=== PATIENT | male | born 1970 | race Caucasian/White ===

== ENCOUNTER 2018-09-26 09:25 | Observation (INO) | payer MEDICARE, OTHER ==
[2018-09-26 09:47] LABS: #Basophils 0.1 thou/uL (0.0-0.2); #Eosinphils 0.1 thou/uL (0.0-0.7); #Lymphocytes 1.5 thou/uL (1.20-3.40); #Monocytes 0.4 thou/uL (0.11-0.59); #Neutrophils 2.8 thou/uL (1.40-6.50); %Basophils 1.1 % (0.0-1.0); %Eosinophils 1.8 % (0.0-10.0); %Monocytes 8.1 % (0.0-10.0); %Neutrophils 58.1 % (42.0-75.0); Hemoglobin 17.5 g/dL (14.0-18.0); Mean Corpuscular HGB CONC 35.7 g/dL (32.0-36.0); Mean Corpuscular Hemoglobin 30.5 pg (27.0-31.0); Mean Corpuscular Volume 85.3 fL (78.0-98.0); Mean Platelet Volume 9.4 fL (7.4-10.4); Platelet Count 231 thou/uL (130-400); RBC Distribution Width 11.8 % (11.5-14.5); Red Blood Cell (RBC) Count 5.73 mill/uL (4.70-6.10); White Blood Cell (WBC) Count 4.8 thou/uL (4.8-10.8)
[2018-09-26] MEDS ORDERED: Nitroglycerin 0.4 MG TAB (25 Tab Bottle) ONE (10:14)
--- NOTE | 2018-09-26 10:23 | CT ---
CT ARTERIOGRAM CHEST WITH IV CONTRAST AND 3D MIP IMAGING: Date: 09/26/18 HISTORY: Chest pain. COMPARISON: 04/27/13. FINDINGS: There is good contrast opacification of pulmonary arteries and thoracic aorta with common origin of t he left common carotid artery from the base of the brachiocephalic artery. Nonspecific lymph nodes sc attered about the mediastinum. No pleural fluid or pneumothorax. IMPRESSION: No CT evidence of pulmonary embolus. POS: FLOYD
[2018-09-26 10:33] LABS: ALT (SGPT) 59 U/L (8-55); AST (SGOT) 36 U/L (5-34); Albumin 4.8 g/dL (3.5-5.0); Alkaline Phosphatase 75 U/L (40-150); Anion Gap 16 mmol/L (10-20); BUN (Urea Nitrogen) 19 mg/dL (8.9-20.6); Bilirubin, Total 0.6 mg/dL (0.2-1.2); CK (CPK) 162 U/L (30-200); Calc. Creatinine Clearance 0 mL/min (70-130); Calcium 10.1 mg/dL (7.8-10.44); Carbon Dioxide 23 mmol/L (22-29); Chloride 105 mmol/L (98-107); Estimated GFR-MDRD 58; Globulin 3.7 g/dL (2.4-3.5); Glucose 105 mg/dL (70-105); Potassium 4.3 mmol/L (3.5-5.1); Protein, Total 8.5 g/dL (6.0-8.3); Sodium 140 mmol/L (136-145)
[2018-09-26] MEDS ORDERED: clonazePAM 1 MG TAB ONE (12:34)
[2018-09-26 13:40] LABS: Troponin I Less than 0.010 ng/mL (< 0.028)
[2018-09-26 14:32] VITALS: BMI 37.3
[2018-09-26 16:08] LABS: Troponin I Less than 0.010 ng/mL (< 0.028)
[2018-09-26] MEDS ORDERED: traMADol HCl 50 MG TAB PO PRN (17:01)
[2018-09-26] MEDS ORDERED: Acetaminophen 325 MG TAB PO PRN (17:04)
[2018-09-26] MEDS ORDERED: Iopamidol 370 76% 100 ML VIAL ONE (17:12)
[2018-09-26] MEDS: Nitroglycerin 0.4 MG TAB (25 Tab Bottle) SL PRN ×2 (17:38→17:44)
[2018-09-26] MEDS: Lorazepam 2 MG/ML VIAL SLOW IVP PRN (18:20)
--- NOTE | 2018-09-26 20:19 | HP ---
PRIMARY CARE PHYSICIAN: Dr. Deng at [facility]. OIL CHANGER: Dr. Umana at [facility]. CHIEF COMPLAINT: Chest pain. HISTORY OF PRESENT ILLNESS: Augustin is a very pleasant 48-year-old male, who presented to the emergency room today after 3 days of left-sided chest pain that radiated to his left arm. Reports he is nauseous, diaphoretic, short of breath with these episodes. Reports they are intermittent. Reports he has had similar episodes in the past. Has had 4 to 5 cardiac caths in the past. He had two in 2017, one of which they placed a stent. This was all done at [facility]. In 2016, he had two heart catheterizations done here, which showed some coronary artery disease, but it was not stented at that time. The patient also reports that yesterday he had some left calf pain. Reports that it was very difficult to walk on and stiff. Reports that he felt like the pain was moving upwards. In the emergency room, did a CTA of his chest. No evidence of pulmonary embolism. The patient does have a past medical history of a pacemaker for Mobitz type 2 heart block in addition to the heart catheterizations. He does have a pacemaker. Denies any recent travels. Had surgery on his left shoulder over a year ago for a bone spur. The patient does report using tobacco. Does have a history of anxiety. EKG shows sinus tach initially with a pulse of 104, no ectopic conduction, normal ST segments, axis is normal. Repeat EKG in the ER showed normal sinus rhythm, beats per minute 90, conduction ST-T waves normal, axis is also normal. Initial troponin was undetectable. Based on history and current symptoms, the patient will be admitted to the observation unit for further evaluation. PAST MEDICAL HISTORY: As above. The patient also reports that he has sleep apnea in which he uses CPAP at night. Also positive pacemaker, anxiety, coronary artery disease, panic anxiety disorder. PAST SURGICAL HISTORY: Includes laparoscopic surgery on left shoulder, cardiac stent x1, surgical removal of gallbladder. PSYCH HISTORY: Panic, anxiety. SOCIAL HISTORY: Lives at home with his . Chews tobacco daily. He has done this for the last 30 years. FAMILY HISTORY: With a strong cardiac history. Father had 4 MIs, which was the cause of his . Mother also has coronary artery disease and MIs in the past. She is currently living and is 80 years old. CURRENT MEDICATIONS: The patient is on: 1. Clonazepam 1 mg q.i.d. 2. Aspirin 81 mg p.o. daily. 3. Irbesartan 10 mg p.o. daily. 4. Fish oil 1000 mg once daily. 5. Nitroglycerin 0.4 mg sublingual as needed for chest pain. 6. Metoprolol 6.25 p.o. daily. 7. Fenofibrate 145 mg p.o. daily. 8. Zetia 10 mg p.o. daily. 9. Plavix 75 mg daily. 10. Crestor 10 mg daily. ALLERGIES: CODEINE, HYDROCODONE, MORPHINE, VANCOMYCIN, VICODIN. REVIEW OF SYSTEMS: CONSTITUTIONAL: The patient denies chills or fever. ENT: Denies rhinorrhea or sore throat. CARDIOVASCULAR: Does report chest pain with radiation to the left arm, intermittent x3 days. Denies palpitations. RESPIRATORY: Does report shortness of breath, which accompanied by chest pain. Also reports dyspnea on exertion, which gets worse after physical exertion. GI: Denies abdominal pain, nausea, vomiting, or diarrhea. MUSCULOSKELETAL: Reports he had some left calf pain yesterday, which has resolved. Denies injury. Denies fall. SKIN: Denies rash or skin changes. NEUROLOGIC: Denies any focal motor or sensory deficits. Denies headache. PHYSICAL EXAMINATION: VITAL SIGNS: Blood pressure is 104/69, pulse is 77, respirations are 20, temperature 98.0, pulse ox is 96 percent on room air. CONSTITUTIONAL: The patient appears anxious, otherwise nontoxic. He is alert and oriented to person, place, and time. HEENT: Head is atraumatic and normocephalic. Eyes, pupils are equal, round, and reactive to light. Extraocular muscles are intact. NECK: Trachea is midline. Normal range of motion. RESPIRATORY: Chest; no signs of respiratory distress. Breath sounds are clear. CARDIOVASCULAR: Heart sounds are normal. Regular rate and rhythm. ABDOMEN: Male. Nontender on palpation. Bowel sounds are heard. BACK: Normal on inspection, no tenderness. EXTREMITIES: Upper extremity, normal range of motion. Inspection is normal. Pulses equal bilaterally in lower extremity. Normal inspection. Normal range of motion. No edema is noted. Pedal pulses are bilaterally equal. NEUROLOGIC: The patient is oriented to person, place, and time. Speech is normal. SKIN: Normal, dry. Normal in color. No rash. PERTINENT LABORATORY DATA: CK is 162. Sodium 140, potassium 4.3, chloride 104, carbon dioxide 23, gap is 16, BUN is 19, creatinine is 1.33, estimated GFR is 58, calcium 10.1, glucose 105, globulin is 3.7, AST 36, ALT 59. Troponin x1 is undetectable. CBC, white blood cell count is 4.8, hemoglobin 17.5, hematocrit 48.9, platelet count is 231. ASSESSMENT AND PLAN: 1. Chest pain. We will trend troponins. We will ask [facility] for records since we saw him here in 2016. We will consult Cardiology to interrogate his pacemaker. Order an echocardiogram. 2. Hypertension. We will continue his home medications. Trend vital signs. 3. Hyperlipidemia. Check lipids. Continue his home medication. 4. Anxiety disorder. We will continue his home medication. 5. Hospital course is dependent on clinical findings. Job ID: [id number]
[2018-09-26] MEDS ORDERED: Fenofibrate Nanocrystallized 145 MG TAB PO SCH (21:00)
[2018-09-26] MEDS ORDERED: Clopidogrel Bisulfate 75 MG TAB PO SCH (21:00)
[2018-09-26] MEDS ORDERED: Aspirin 81 mg Enteric Coated Tablet PO SCH (21:00)
[2018-09-26] MEDS ORDERED: Ezetimibe 10 MG TAB PO SCH (21:00)
[2018-09-26] MEDS ORDERED: Rosuvastatin 10 MG TAB PO SCH (21:00)
[2018-09-26] MEDS ORDERED: OMEGA 3 ACID ETHYL ESTERS PO SCH (21:00)
[2018-09-26] MEDS: clonazePAM 1 MG TAB PO SCH (21:07)
[2018-09-26] MEDS: Famotidine 20 MG TAB PO SCH (21:08)
--- NOTE | 2018-09-27 02:47 | CON ---
DATE OF CONSULTATION: PRIMARY MIXING AND DISPENSING SUPERVISOR: Dr. Umana. The patient's primary learning development specialist here at [facility] is going to be Dr. Booker. REFERRING PROVIDER: Zo REASON FOR CARDIOLOGY CONSULT: Chest pain. HISTORY OF PRESENT ILLNESS: Mr. Ruffin is a 48-year-old male with significant history of PTSD since 2009, coronary artery disease and stent placement in 2016, pacemaker placement in 2013, sleep apnea, and family history of fatty liver. The patient underwent stent placement in [address] Umana. He was told that he still has some stenosis to his coronary arteries, but at that time, they were not significant enough to have another procedure by Dr. Umana at [facility]. The patient followed up with Dr. Umana about 2 months ago. The patient was doing fine and the patient's EKG was showing normal per patient. The patient usually have anxiety attack with severe chest pain from the patient's medical history of PTSD. Three days ago, the patient started having pain to the left calf, which radiated to his left chest to his left upper arm for 2 days and the pain was getting worse with chest pressure and stabbing like pain. Yesterday, the patient's blood pressure was 130/85, heart rate 173 and a few minutes later, the patient's heart rate going up to 135. The patient started feeling dizziness, weakness, so the patient decided to present to the emergency department for further evaluation and treatment. The patient also has had nausea for at least 3 days. At this moment, once the patient arrived to the emergency department, the pain in the patient's left calf has disappeared. At this moment, the patient denies any chest pain, heaviness, tightness, discomfort, palpitation or fluttering in his chest, dizziness, lightheadedness, or any other cardiac complaints. The patient underwent stent placement in [address] Umana. We are processing to obtain the information from [facility] cipriano Sanchez at [place] at this moment. The patient underwent pacemaker placement in [address] Pompa secondary to complete heart block. The patient's pacemaker was interrogated today, which shows normal function with 31 episodes of longest one about 4 minutes and the latest one was noted to be in 08/2018. PAST MEDICAL HISTORY: 1. Hyperlipidemia. 2. Hypertriglyceridemia. 3. PTSD. 4. Sleep apnea using CPAP at night. 5. Hypertension. 6. Complete heart block. PAST SURGICAL HISTORY: 1. Pacemaker placement in 2014, cardiac stent placement in [address] Umana at [facility]. 2. Left shoulder surgery. 3. Cholecystectomy in 2009. FAMILY HISTORY: The patient's father had medical history of myocardial infarction x4 and he at the age of 56 due to the complication from myocardial infarction. The patient's mother has history of hyperlipidemia and hypertension. The patient's sister has diabetes and CABG x3 at the age of 50s. The patient's other sister has disorder of no cholesterol in her body. The patient's brother has history of stent placement and there are significant family history of fatty liver in his family. SOCIAL HISTORY: He is . He has 3 children. They live well; however, one of the son has panic anxiety issue. He denies smoking, EtOH, or illicit drug abuse, but he did half can a day. He drinks one glass of tea at day. He tried to exercise every day. ALLERGIES: HE IS ALLERGIC TO HYDROCODONE, VANCOMYCIN, AND MORPHINE. HOME MEDICATIONS: 1. Clonazepam 1 mg every 6 hours. 2. Aspirin 81 mg once a day. 3. Crestor 10 once a day. 4. Fenofibrate 145 mg once a day. 5. Zetia 10 mg once a day. 6. Plavix 75 mg once a day. 7. Metoprolol 12.5 mg once a day. 8. Metoprolol succinate 12.5 once a day. 9. Ashby-3 1000 mg every day. REVIEW OF SYSTEMS: The patient's twelve-point review of systems was negative unless otherwise mentioned in HPI. PHYSICAL EXAMINATION: VITAL SIGNS: Blood pressure 111/57, pulse is 76 and sinus rhythm, temperature 97.9, respiratory rate 16, and O2 saturation 94% with room air. GENERAL: The patient is alert and oriented x4, not in acute distress. HEENT: Head, normocephalic and atraumatic. Eyes, extraocular muscle movement intact. ENT and mouth, oral and nasal mucosa moist without lesion. NECK: Supple. Normal range of motion. No JVD. RESPIRATORY: Clear to auscultate bilaterally. No wheezing, rales, or rhonchi noted. CARDIOVASCULAR: Regular rate and rhythm. Normal S1, S2. No S3, S4. No significant murmur, heaves, or thrills noted. 2+ pulses in the bilateral upper and lower extremities. No edema. Carotid pulses are present with a brisk thrill. No edema in the lower extremities. ABDOMEN: Bowel sounds are present. Nontender. No mass to palpitate. SKIN: Warm, dry. No lesion, bruise, or rash noted. MUSCULOSKELETAL: The patient is able to move all extremities. At this moment, the patient denied any claudication. NEUROLOGIC: The patient is alert and oriented x4, not in acute distress. Nonfocal. PSYCHIATRIC: The patient is easy to get agitate, but very pleasant gentleman. LABORATORY DATA: WBC 4.8, hemoglobin 17.5, hematocrit 48.9, and platelet 231. Sodium 140, potassium 4.3, BUN 19, and creatinine 1.33. AST is 36 and ALT 59. Creatine kinase 162, and troponin is negative x3. A CT scan of the chest shows no evidence of pulmonary embolism. ASSESSMENT AND PLAN: 1. Chest pain. The patient's chest pain was coming from the patient's left calf for 2 days prior to this admission. At this moment, the patient denied any chest discomfort or any cardiac complaints. The patient underwent a cardiac catheterization in 2017 with stent placement. At this moment, the patient's 12-lead EKG and cardiac enzymes are negative; however, we would like to keep the patient n.p.o. after midnight and we would like to defer to Dr. Booker to decide whether the patient needs further cardiac workup. 2. Hypertension. The patient's blood pressure is stable with current medication. 3. Sleep apnea. He usually uses CPAP in night at home. Pacemaker interrogation shows normal function with 31 episodes of sinus tach. 4. Posttraumatic stress disorder. He is on clonazepam. 5. Coronary artery disease and stent placement. Telemetry records showed there are no ST-segment changes or T-wave inversion. The patient is on aspirin 81 mg once a day, Plavix 75 mg once a day, metoprolol succinate 12.5 mg once a day, and Crestor 10 mg once a day. 6. Hyperlipidemia. The patient is on statin. Thank you very much for allowing the Cardiology Service to participate in the care of this patient. We will follow along the patient's care team and make further evaluation as appropriate. Job ID: [id number]
[2018-09-27] MEDS: Lorazepam 2 MG/ML VIAL SLOW IVP PRN (04:54)
[2018-09-27 06:22] LABS: #Eosinphils 0.1 thou/uL (0.0-0.7); #Lymphocytes 1.4 thou/uL (1.20-3.40); #Monocytes 0.3 thou/uL (0.11-0.59); #Neutrophils 2.3 thou/uL (1.40-6.50); %Basophils 0.6 % (0.0-1.0); %Eosinophils 1.8 % (0.0-10.0); %Lymphocytes 33.8 % (21.0-51.0); %Monocytes 8.3 % (0.0-10.0); %Neutrophils 55.5 % (42.0-75.0); Hemoglobin 15.5 g/dL (14.0-18.0); Mean Corpuscular HGB CONC 35.5 g/dL (32.0-36.0); Mean Corpuscular Hemoglobin 30.3 pg (27.0-31.0); Mean Corpuscular Volume 85.4 fL (78.0-98.0); Mean Platelet Volume 9.3 fL (7.4-10.4); Platelet Count 210 thou/uL (130-400); RBC Distribution Width 11.7 % (11.5-14.5); Red Blood Cell (RBC) Count 5.11 mill/uL (4.70-6.10); White Blood Cell (WBC) Count 4.1 thou/uL (4.8-10.8)
[2018-09-27 06:40] LABS: ALT (SGPT) 47 U/L (8-55); AST (SGOT) 24 U/L (5-34); Albumin 4.1 g/dL (3.5-5.0); Alkaline Phosphatase 61 U/L (40-150); Anion Gap 13 mmol/L (10-20); BUN (Urea Nitrogen) 17 mg/dL (8.9-20.6); Bilirubin, Total 0.7 mg/dL (0.2-1.2); Calc. Creatinine Clearance 138 mL/min (70-130); Calcium 9.1 mg/dL (7.8-10.44); Carbon Dioxide 22 mmol/L (22-29); Chloride 106 mmol/L (98-107); Estimated GFR-MDRD 68; Globulin 3.2 g/dL (2.4-3.5); Glucose 91 mg/dL (70-105); Potassium 4.2 mmol/L (3.5-5.1); Protein, Total 7.3 g/dL (6.0-8.3); Sodium 137 mmol/L (136-145)
[2018-09-27] MEDS: Famotidine 20 MG TAB PO SCH (07:43)
[2018-09-27] MEDS: clonazePAM 1 MG TAB PO SCH ×3 (07:43→17:05)
--- NOTE | 2018-09-27 08:34 | CON ---
DATE OF CONSULTATION: 09/26/2018 ADDENDUM: INDICATION FOR CONSULTATION: A 48-year-old gentleman with atypical chest pain. HISTORY OF PRESENT ILLNESS: Please refer to the notes already dictated by my nurse practitioner. This is a 48-year-old gentleman with a history of coronary artery disease, who recently underwent angioplasty last year and underwent stent placement by Dr. Juarez at [facility]. He had previously had cardiac catheterizations, which showed no significant coronary artery disease here, but apparently his disease had progressed the fact that he needed to undergo intervention with stent placement. He has also had a second-degree heart block type 2, for which he underwent pacemaker insertion. At this time, he has been complaining of some chest discomfort, which is certainly atypical. He said the pain started in his foot, then radiated up into his chest area, and he presented to the emergency room here for further evaluation and treatment. At this time, he remains relatively stable. He has no chest pain at this time. His troponin I is normal. There is no indication he has had any myocardial infarction. He does have a history of anxiety, also his EKG did not show any evidence of ischemia. For his past medical history, social history, family history, review of systems, medications, allergies, please refer the notes already dictated by the nurse practitioner. PHYSICAL EXAMINATION: GENERAL: Reveals a well-developed, well-nourished gentleman, who is obese. VITAL SIGNS: Blood pressure is 104/69, heart rate is 77 and regular, he is afebrile, respiratory rate is about 20, and O2 saturation 96%. HEENT: Shows head to be normocephalic and atraumatic. Carotid pulses are present. No bruits. CHEST: Clear to auscultation. No rales, rhonchi, or wheezing. He has a well-healed surgical incision over the pacemaker site. CARDIOVASCULAR: Reveals a regular rate and rhythm. ABDOMEN: Shows obesity with positive bowel sounds. EXTREMITIES: Showed no clubbing or cyanosis. He had minimal lower extremity edema. Pedal pulses are present. NEUROLOGICAL: He appears to be intact. LABORATORY DATA: Shows WBC of 4.8, with a hemoglobin of 17.5. Chemistries show negative troponin I. His creatinine is 1.33. Sodium is 140, potassium 4.3, AST was 36. IMPRESSION: Atypical chest pain in a patient who has coronary artery disease, underwent angioplasty and stent placement. We will try to obtain the records from [facility]. He does have anxiety. There is no indication at this time that he is having any acute cardiac events. We will continue to monitor him. Dr. Booker will resume his care tomorrow as far as his other medical problems which include sleep apnea. This will be dealt with by the primary care service. Also, he has hypercholesterolemia, I would suggest he continue his medications with statins. He has also been placed on DVT prophylaxis, Lovenox. Would agree with this at this time. We will continue his other medications. Job ID: [id number]
[2018-09-27] MEDS ORDERED: Enoxaparin Sodium 40 MG/0.4 ML SYRINGE SC SCH (09:00)
--- NOTE | 2018-09-27 16:33 | PDOC.PN ---
- Subjective Encounter Start Date: 09/27/18 Encounter Start Time: 16:31 Patient lying in bed, he reports feeling better. He underwent workup for chest pain rule/out, results pending. He denies any further chest pain, shortness of breath or abdominal pain. - Objective Resuscitation Status - Order Detail: 09/26/18 17:04 Resuscitation Status Routine Co-Sign Provider: Resuscitation Status: FULL: Full Resuscitation Discussed with: patient and Additional comments: is surrogate decision maker MAR Reviewed: Yes Vital Signs & Weight: Vital Signs (12 hours) Temp Pulse Resp BP Pulse Ox 09/27/18 15:05 98.1 F 84 20 131/74 94 L 09/27/18 07:20 98.8 F 77 20 120/74 95 Weight Weight 267 lb 3.2 oz I&O: 09/26/18 09/27/18 09/28/18 06:59 06:59 06:59 Intake Total 1040 Output Total 1650 Balance -610 Result Diagrams: 09/27/18 05:41 09/27/18 05:41 Radiology Reviewed by me: Yes Phys Exam - Physical Examination Constitutional: NAD HEENT: PERRLA, moist MMs, sclera anicteric, oral pharynx no lesions Neck: no nodes, no JVD, supple Respiratory: no wheezing, no rales, no rhonchi, clear to auscultation bilateral Cardiovascular: RRR, no significant murmur, no rub Gastrointestinal: soft, non-tender, no distention, positive bowel sounds Musculoskeletal: no edema, pulses present Neurological: non-focal, normal sensation, moves all 4 limbs Lymphatic: no nodes Psychiatric: normal affect, A&O x 3 Skin: no rash, normal turgor, cap refill <2 seconds Dx/Plan (1) Chest pain Code(s): R07.9 - CHEST PAIN, UNSPECIFIED Status: Acute (2) Anxiety Code(s): F41.9 - ANXIETY DISORDER, UNSPECIFIED Status: Chronic (3) Hyperlipidemia Code(s): E78.5 - HYPERLIPIDEMIA, UNSPECIFIED Status: Chronic (4) S/P cardiac pacemaker procedure Status: Chronic - Plan cont current plan of care, DVT proph w/lovenox * Continue medical management * Cardiology services following * Await results of stress test and echo * Vitals and labs unremarkable * If workup negative, patient likely discharged for outpatient follow up.
--- NOTE | 2018-09-27 18:39 | NM ---
MYOCARDIAL PERFUSION SCAN: 09/27/2018 PROVIDED CLINICAL HISTORY: Chest pain. RADIOPHARMACEUTICAL: Technetium 99m labeled sestamibi 32.7 millicuries IV stress. Technetium 99m labeled sestamibi 9.8 millicuries IV rest. FINDINGS: There is a normal, homogeneous distribution of radiotracer throughout the left ventricular myocardium at both stress and rest. Gated data demonstrate normal myocardial wall motion and thickening with a calculated LVEF of 66%. TID is 1. IMPRESSION: 1. No scintigraphic evidence for ischemia. 2. Normal left ventricular ejection fraction. POS: RANDALL
[2018-09-27 20:04] VITALS: BP 140/85; TEMP 97.5
--- NOTE | 2018-09-27 20:58 | DIS ---
DATE OF ADMISSION: 09/26/2018 DATE OF DISCHARGE: 09/27/2018 PRIMARY CARE PROVIDER: Dr. Deng at [facility]. DISPOSITION: Discharged to home. CODE STATUS: Full. DIET: Heart healthy. DIAGNOSES: 1. Noncardiac chest pain. 2. Obstructive sleep apnea. 3. History of coronary artery disease. 4. Panic attack disorder. DISCHARGE MEDICATIONS: Same as his home medicines: 1. Klonopin 1 mg q.i.d. 2. Crestor 10 mg a day. 3. Lovaza at bedtime. 4. Metoprolol 12.5 mg at bedtime. 5. Fenofibrate 145 mg p.o. at bedtime. 6. Zetia 10 mg at bedtime. 7. Plavix 75 mg at bedtime. 8. Aspirin 81 mg at bedtime. ALLERGIES: CODEINE, HYDROCODONE, MORPHINE, AND VANCOMYCIN. HOSPITAL COURSE: The patient was admitted to the hospital to [facility] with chest pain. [facility] records were ordered. Serial lab was done. His CBC was unremarkable. Comprehensive metabolic profile showed a creatinine of 1.33 with a followup of 1.15. AST 36, followup 24, ALT 59, followup 47. Cardiac enzymes normal x3, less than 0.01 troponin. The patient did well during his hospital stay. He underwent a nuclear medicine stress test, homogeneous distribution. Rest and stress; no evidence of ischemia. Normal left ventricular ejection fraction. I discussed this with the patient. He is comfortable with going home. He was seen in consultation by Dr. Grace Crawford, and in followup by Dr. Booker, cardiology. He also had a CT angiogram of the chest, thorax, which showed no evidence of pulmonary emboli. The patient relates his pain to anxiety and to agree with him. He is comfortable with immediate discharge. His vital signs are stable. His cardio respiratory exam is normal. He has been advised to see Dr. Deng, his PCP at [facility] in one week. No procedures were done. Job ID: [id number] [facility]
--- NOTE | 2018-10-01 10:33 | STRESS ---
Acquisition Time: 2018-09-27 11:57:20 Total Exercise Time: 00:04:00 Test Indications: CHEST PAIN Medications: Protocol: ADENOSINE Max HR: 117 BPM 67% of Pred: 174 BPM Max BP: 154/080 mmHG Max Work Load: 1.0 METS RESTING ECG: NORMAL SINUS RHYTHM AT 75 BPM SYMPTOMS: DYSPNEA NORMAL BP RESPONSE ECTOPY: NONE ECG STRESS: NO SIGNIFICANT CHANGES INTERPRETATION: AWAIT NUCLEAR IMAGES FOR DEFINITIVE DIAGNOSIS Confirmed by BAYLEE COBURN ([id number]), news videotape editor BRITTANY PETERSON ([id number]) on 10/01/2018 10:33:04 AM Referred By: MD Franklyn LEAVITT Confirmed By:BAYLEE COBURN
--- NOTE | 2018-10-02 21:59 | EKG ---
Test Reason : CP Blood Pressure : / mmHG Vent. Rate : 104 BPM Atrial Rate : 104 BPM P-R Int : 160 ms QRS Dur : 098 ms QT Int : 346 ms P-R-T Axes : 040 042 -05 degrees QTc Int : 454 ms Poor data quality, interpretation may be adversely affected Sinus tachycardia Otherwise normal ECG Confirmed by KAYLA LYNCH DO ([id number]), development editor VIVI MONTANO ([id number]) on 10/02/2018 9:58:40 PM Referred By: Confirmed By:KAYLA LYNCH DO
== END 2018-09-27 20:40 | disposition home or self-care (01) ==
LOC: ERS 09:25 → ERHOLD 12:48 → 2SW 14:27
PROVIDERS: ADMIT Internal Medicine Infectious Disease; ATTEND Internal Medicine Infectious Disease
DX: R07.89 Other chest pain (principal); I10 Essential (primary) hypertension; E78.5 Hyperlipidemia, unspecified; F41.9 Anxiety disorder, unspecified; I25.10 Atherosclerotic heart disease of native coronary artery without angina pectoris; I44.2 Atrioventricular block, complete; E78.1 Pure hyperglyceridemia; F17.290 Nicotine dependence, other tobacco product, uncomplicated; F41.0 Panic disorder [episodic paroxysmal anxiety]; G47.33 Obstructive sleep apnea (adult) (pediatric); F43.10 Post-traumatic stress disorder, unspecified; Z99.89 Dependence on other enabling machines and devices; Z95.5 Presence of coronary angioplasty implant and graft; Z90.49 Acquired absence of other specified parts of digestive tract; Z88.5 Allergy status to narcotic agent; Z88.1 Allergy status to other antibiotic agents; Z79.82 Long term (current) use of aspirin; Z79.02 Long term (current) use of antithrombotics/antiplatelets; Z79.899 Other long term (current) drug therapy; Z98.890 Other specified postprocedural states
CPT/HCPCS: 71275; 78452; 80053 ×2; 82550; 84484 ×2; 85025 ×2; 93005; 93017; 93306; 94760; 96372; 96374; 96376; 97139; 99285; A9500; G0378 ×2; 36415; J0153; J1650; J2060

== ENCOUNTER 2019-07-12 08:58 | Emergency (ER) | payer MEDICARE ==
[2019-07-12 09:31] LABS: #Eosinphils 0.1 thou/uL (0.0-0.7); #Lymphocytes 1.5 thou/uL (1.20-3.40); #Monocytes 0.5 thou/uL (0.11-0.59); %Basophils 0.4 % (0.0-1.0); %Eosinophils 2.6 % (0.0-10.0); %Lymphocytes 28.3 % (21.0-51.0); %Monocytes 10.5 % (0.0-10.0); %Neutrophils 58.3 % (42.0-75.0); Hemoglobin 16.1 g/dL (14.0-18.0); Mean Corpuscular HGB CONC 34.9 g/dL (32.0-36.0); Mean Corpuscular Hemoglobin 30.4 pg (27.0-31.0); Mean Corpuscular Volume 87.2 fL (78.0-98.0); Platelet Count 210 thou/uL (130-400); RBC Distribution Width 11.8 % (11.5-14.5); White Blood Cell (WBC) Count 5.2 thou/uL (4.8-10.8)
[2019-07-12 09:37] LABS: PTT 25.4 SEC (22.9-36.1); Prothrombin Time 12.9 SEC (12.0-14.7)
--- NOTE | 2019-07-12 09:45 | CT ---
Exam: Head CT without contrast HISTORY: Level 1 stroke. Left-sided weakness and numbness. COMPARISON: 11/16/2016 FINDINGS: Hemorrhage: No intraparenchymal hemorrhage or extra-axial hematoma. Brain parenchyma: Cortical henderson-white matter differentiation is preserved. No mass effect or midline shift. Basilar cisterns are patent. Redemonstration of a leslie cisterna magna Ventricular system: Ventricles and sulci are patent and symmetric. Calvarium: Intact. Sinuses and mastoid air cells: Adequate aeration. IMPRESSION: No acute intracranial process. Results study discussed with Dr. Victoria 07/12/2019 at 9:42 AM Code CR
[2019-07-12 09:56] LABS: ALT (SGPT) 39 U/L (8-55); AST (SGOT) 24 U/L (5-34); Albumin 4.8 g/dL (3.5-5.0); Alkaline Phosphatase 70 U/L (40-110); Anion Gap 14 mmol/L (10-20); BUN (Urea Nitrogen) 15 mg/dL (8.9-20.6); Bilirubin, Total 0.6 mg/dL (0.2-1.2); CK (CPK) 109 U/L (30-200); Calc. Creatinine Clearance 0 mL/min (70-130); Calcium 9.7 mg/dL (7.8-10.44); Carbon Dioxide 23 mmol/L (22-29); Chloride 104 mmol/L (98-107); Estimated GFR-MDRD 62; Globulin 3.5 g/dL (2.4-3.5); Glucose 110 mg/dL (70-105); Potassium 3.7 mmol/L (3.5-5.1); Protein, Total 8.3 g/dL (6.0-8.3); Sodium 137 mmol/L (136-145)
[2019-07-12 10:34] LABS: INR-International Normal Ratio 0.9; Prothrombin Time 12.4 SEC (12.0-14.7)
[2019-07-12 10:40] LABS: PTT 25.7 SEC (22.9-36.1)
[2019-07-12 11:03] LABS: Bilirubin Negative (Negative); Blood, Urine Negative (Negative); Clarity Clear (Clear); Glucose, Urine (Dipstick) Normal (Negative); Leukocyte Negative Leu/uL (Negative); Nitrite Negative (Negative); Protein, Urine (Dipstick) Negative (Neg-Trace); Urobilinogen Normal mg/dL (Less than 2)
[2019-07-12 11:06] LABS: Acetaminophen Less than 6.0 mcg/mL (10.0-30.0); Alcohol Less than 10 mg/dL (Less than 10); Salicylate Less than 8.0 mg/dL (15.0-30.0)
[2019-07-12 11:13] LABS: Amphetamine Not Detected (NotDetected); Barbiturates Screen Not Detected (NotDetected); Benzodiazepine Screen Not Detected (NotDetected); Cocaine Metabolite Screen Not Detected (NotDetected); Medtox Control Line Valid? VALID (VALID); Medtox Reader # READER 4; Methadone Not Detected (NotDetected); Methamphetamine Not Detected (NotDetected); Opiate Screen Not Detected (NotDetected); Oxycodone Screen Not Detected (NotDetected); Phencyclidine (PCP) Not Detected (NotDetected); THC/Cannabinoid Screen Not Detected (NotDetected); Tricyclic Screen Not Detected (NotDetected)
[2019-07-12] MEDS ORDERED: Lorazepam 2 MG/ML VIAL ONE (11:35)
[2019-07-12] MEDS ORDERED: Ondansetron PF 4 MG/2 ML Vial ONE (11:49)
== END 2019-07-12 13:11 | disposition home or self-care (01) ==
LOC: ERS 08:58
DX: M54.5 Low back pain (principal); G89.29 Other chronic pain; F41.9 Anxiety disorder, unspecified; F17.220 Nicotine dependence, chewing tobacco, uncomplicated; G47.30 Sleep apnea, unspecified
CPT/HCPCS: 36415; 36416; 51701; 70450; 80053; 80306; 80307; 81003; 82140; 82550; 83690; 84484; 85025; 85610; 85652; 85730; 86140; 86850; 86900; 86901; 93005; 96374; 96375; J2060; J2405

== ENCOUNTER 2021-08-12 02:24 | Inpatient (IN) | payer BC, MEDICARE ==
[2021-08-12 02:53] LABS: #Eosinphils 0.1 thou/uL (0.0-0.7); #Lymphocytes 1.6 thou/uL (1.20-3.40); #Monocytes 0.5 thou/uL (0.11-0.59); #Neutrophils 2.8 thou/uL (1.40-6.50); %Basophils 0.3 % (0.0-1.0); %Eosinophils 2.2 % (0.0-10.0); %Lymphocytes 31.8 % (21.0-51.0); %Neutrophils 55.8 % (42.0-75.0); Hemoglobin 16.3 g/dL (14.0-18.0); Mean Corpuscular HGB CONC 35.7 g/dL (32.0-36.0); Mean Corpuscular Hemoglobin 31.5 pg (27.0-31.0); Mean Corpuscular Volume 88.2 fL (78.0-98.0); Mean Platelet Volume 8.5 fL (7.4-10.4); Platelet Count 207 thou/uL (130-400); RBC Distribution Width 11.8 % (11.5-14.5); Red Blood Cell (RBC) Count 5.16 mill/uL (4.70-6.10); White Blood Cell (WBC) Count 5.1 thou/uL (4.8-10.8)
[2021-08-12] MEDS ORDERED: Nitroglycerin 2% Ointment 1 INCH/1 GM Packet ONE (02:58)
[2021-08-12] MEDS ORDERED: Aspirin Chewable 81 MG TAB ONE (02:58)
[2021-08-12 03:17] LABS: ALT (SGPT) 65 U/L (8-55); AST (SGOT) 38 U/L (5-34); Albumin 4.3 g/dL (3.5-5.0); Alkaline Phosphatase 75 U/L (40-110); Anion Gap 14 mmol/L (10-20); BUN (Urea Nitrogen) 13 mg/dL (8.9-20.6); Bilirubin, Total 0.5 mg/dL (0.2-1.2); CK (CPK) 207 U/L (30-200); Calc. Creatinine Clearance 0 mL/min (70-130); Calcium 9.4 mg/dL (7.8-10.44); Carbon Dioxide 21 mmol/L (22-29); Chloride 106 mmol/L (98-107); Globulin 3.2 g/dL (2.4-3.5); Glucose 104 mg/dL (70-105); Lipase 56 U/L (8-78); Protein, Total 7.5 g/dL (6.0-8.3); Sodium 137 mmol/L (136-145)
[2021-08-12] MEDS ORDERED: Fentanyl 100 MCG/2 ML VIAL ONE (03:44)
[2021-08-12] MEDS ORDERED: Enoxaparin Sodium 30 MG/0.3 ML SYRINGE ONE (03:44)
[2021-08-12] MEDS ORDERED: Enoxaparin Sodium 100 MG/ML SYRINGE ONE (03:44)
[2021-08-12] MEDS ORDERED: Lorazepam 2 MG/ML VIAL ONE (05:00)
[2021-08-12 05:56] VITALS: BMI 29.7
[2021-08-12] MEDS ORDERED: Ondansetron ODT 4 MG TAB SL PRN (06:15)
[2021-08-12] MEDS ORDERED: Sodium Chloride 0.9% 1,000 ML IV SCH (06:15)
[2021-08-12] MEDS ORDERED: Ondansetron PF 4 MG/2 ML Vial IVP PRN ×2 (06:15→08:17)
[2021-08-12 06:24] LABS: Troponin I Less than 0.010 ng/mL (< 0.028)
[2021-08-12] MEDS ORDERED: Nitroglycerin 0.4 MG TAB (25 Tab Bottle) SL PRN (07:41)
[2021-08-12] MEDS ORDERED: Aspirin 325 MG TAB PO SCH (08:00)
[2021-08-12] MEDS ORDERED: Ondansetron ODT 4 MG TAB PO PRN (08:17)
[2021-08-12] MEDS ORDERED: Acetaminophen 325 MG TAB PO PRN (08:17)
[2021-08-12 08:38] LABS: Magnesium 2.2 mg/dL (1.6-2.6)
[2021-08-12] MEDS: Nitroglycerin 2% Ointment 1 INCH/1 GM Packet TOP SCH ×2 (08:43→16:26)
[2021-08-12] MEDS: Aspirin Chewable 81 MG TAB PO SCH (08:43)
[2021-08-12 09:28] LABS: Troponin I Less than 0.010 ng/mL (< 0.028)
[2021-08-12] MEDS ORDERED: Fentanyl 100 MCG/2 ML VIAL SLOW IVP SCH (10:30)
[2021-08-12] MEDS ORDERED: Iopamidol 370 76% 100 ML VIAL ONE (10:59)
[2021-08-12 11:07] LABS: Hemoglobin 15.3 g/dL (14.0-18.0)
[2021-08-12 11:28] LABS: Troponin I Less than 0.010 ng/mL (< 0.028)
[2021-08-12] MEDS: clonazePAM 1 MG TAB PO SCH ×3 (14:22→22:40)
[2021-08-12 15:32] LABS: Troponin I Less than 0.010 ng/mL (< 0.028)
[2021-08-12] MEDS ORDERED: Communication Order-Pharmacy FS SCH (17:15)
[2021-08-12 18:46] LABS: Hemoglobin 14.8 g/dL (14.0-18.0)
[2021-08-12] MEDS ORDERED: Rosuvastatin 10 MG TAB PO SCH (21:00)
[2021-08-12] MEDS ORDERED: Clopidogrel Bisulfate 75 MG TAB PO SCH (21:00)
[2021-08-12] MEDS ORDERED: Fenofibrate Nanocrystallized 145 MG TAB PO SCH (21:00)
[2021-08-12] MEDS ORDERED: Ezetimibe 10 MG TAB PO SCH (21:00)
[2021-08-13 05:34] LABS: #Eosinphils 0.1 thou/uL (0.0-0.7); #Lymphocytes 1.1 thou/uL (1.20-3.40); #Monocytes 0.6 thou/uL (0.11-0.59); #Neutrophils 3.8 thou/uL (1.40-6.50); %Basophils 0.5 % (0.0-1.0); %Eosinophils 2.1 % (0.0-10.0); %Monocytes 10.4 % (0.0-10.0); %Neutrophils 67.1 % (42.0-75.0); Hemoglobin 14.8 g/dL (14.0-18.0); Mean Corpuscular HGB CONC 34.9 g/dL (32.0-36.0); Mean Corpuscular Volume 88.8 fL (78.0-98.0); Mean Platelet Volume 9.1 fL (7.4-10.4); Platelet Count 203 thou/uL (130-400); RBC Distribution Width 11.8 % (11.5-14.5); Red Blood Cell (RBC) Count 4.77 mill/uL (4.70-6.10); White Blood Cell (WBC) Count 5.7 thou/uL (4.8-10.8)
[2021-08-13 05:50] LABS: ALT (SGPT) 60 U/L (8-55); AST (SGOT) 32 U/L (5-34); Alkaline Phosphatase 69 U/L (40-110); Bilirubin, Direct 0.2 mg/dL (0.1-0.3); Bilirubin, Total 0.9 mg/dL (0.2-1.2); Cardiac Risk 8.1 (Less than 4.5); Cholesterol 178 mg/dl (< 200 Desired); HDL Cholesterol 22 mg/dL (>60 Neg Risk); Protein, Total 7.1 g/dL (6.0-8.3); Triglycerides 486 mg/dL (Less than 150)
[2021-08-13] MEDS ORDERED: Sodium Chloride 0.9% 1,000 ML IV SCH ×2 (06:00→08:28)
[2021-08-13] MEDS ORDERED: Heparin 10,000 UNITS/ 10 ML VIAL ONE (06:30)
[2021-08-13] MEDS ORDERED: Lidocaine 1% (PF) 30 ML VIAL ONE (06:30)
[2021-08-13 06:40] LABS: SARS-CoV-2 NAA Rapid Test Not Detected (NotDetected)
[2021-08-13 06:53] LABS: Anion Gap 13 mmol/L (10-20); BUN (Urea Nitrogen) 15 mg/dL (8.9-20.6); Calc. Creatinine Clearance 157 mL/min (70-130); Calcium 9.5 mg/dL (7.8-10.44); Carbon Dioxide 23 mmol/L (22-29); Chloride 105 mmol/L (98-107); Glucose 94 mg/dL (70-105); Sodium 137 mmol/L (136-145)
[2021-08-13] MEDS ORDERED: Midazolam HCl 2 mg/2 ml Vial ONE (07:28)
[2021-08-13] MEDS ORDERED: Fentanyl 100 MCG/2 ML VIAL ONE (07:28)
[2021-08-13] MEDS ORDERED: Bivalirudin 250 MG VIAL ONE (07:56)
[2021-08-13] MEDS ORDERED: Iopamidol 370 76% 100 ML VIAL ONE (10:50)
[2021-08-13] MEDS ORDERED: Iopamidol 370 76% 50 ML VIAL FS ONE (10:50)
[2021-08-13] MEDS: clonazePAM 1 MG TAB PO SCH ×3 (14:11→18:06)
[2021-08-13] MEDS: Aspirin Chewable 81 MG TAB PO SCH (14:11)
[2021-08-13 16:32] VITALS: BP 129/73; TEMP 98.3
== END 2021-08-13 18:30 | disposition home or self-care (01) | DRG 287 ==
LOC: ERS 02:24 → 2NO 04:18
PROVIDERS: ADMIT Student in an Organized Health Care Education/Training Program; ATTEND Family Medicine
PROC: 4A023N7 Measurement of Cardiac Sampling and Pressure, Left Heart, Percutaneous Approach (ICD-10-PCS; principal; 2021-08-12)
PROC: B2111ZZ Fluoroscopy of Multiple Coronary Arteries using Low Osmolar Contrast (ICD-10-PCS; 2021-08-12)
PROC: B2151ZZ Fluoroscopy of Left Heart using Low Osmolar Contrast (ICD-10-PCS; 2021-08-12)
DX: I25.110 Atherosclerotic heart disease of native coronary artery with unstable angina pectoris (principal); I50.32 Chronic diastolic (congestive) heart failure; Z20.822 Contact with and (suspected) exposure to COVID-19; I11.0 Hypertensive heart disease with heart failure; E78.5 Hyperlipidemia, unspecified; F41.9 Anxiety disorder, unspecified; F32.A Depression, unspecified; E66.01 Morbid (severe) obesity due to excess calories; F41.0 Panic disorder [episodic paroxysmal anxiety]; Z95.5 Presence of coronary angioplasty implant and graft; Z95.0 Presence of cardiac pacemaker; Z88.5 Allergy status to narcotic agent; Z88.1 Allergy status to other antibiotic agents; Z79.82 Long term (current) use of aspirin; Z79.899 Other long term (current) drug therapy; Z68.39 Body mass index [BMI] 39.0-39.9, adult
CPT/HCPCS: 36415; 71045; 71275; 74174; 80048; 80053; 80061; 80076; 82150; 82550; 83690; 83735; 83880; 84443; 84484; 85025; 85347; 93005; 93010; 93458; 93571; 94760; 99152; 99153; C1769; J0153; J0583; J1644; J1650; J2001; J2060; J2250; J2405; J3010; J7050; Q9967; U0002; U0003; U0005

== ENCOUNTER 2022-09-14 21:41 | Inpatient (IN) | payer BC, MEDICARE ==
[2022-09-14] MEDS ORDERED: Aspirin Chewable 81 MG TAB ONE (22:41)
[2022-09-14 22:43] LABS: #Eosinphils 0.1 thou/uL (0.0-0.7); #Lymphocytes 1.8 thou/uL (1.20-3.40); #Monocytes 0.6 thou/uL (0.11-0.59); #Neutrophils 3.1 thou/uL (1.40-6.50); %Basophils 0.6 % (0.0-1.0); %Eosinophils 1.7 % (0.0-10.0); %Lymphocytes 32.2 % (21.0-51.0); %Monocytes 10.1 % (0.0-10.0); %Neutrophils 55.4 % (42.0-75.0); Hemoglobin 16.5 g/dL (14.0-18.0); Mean Corpuscular HGB CONC 34.8 g/dL (32.0-36.0); Mean Corpuscular Hemoglobin 30.8 pg (27.0-31.0); Mean Corpuscular Volume 88.6 fl (78.0-98.0); Platelet Count 193 10x3/uL (130-400); RBC Distribution Width 11.9 % (11.5-14.5); Red Blood Cell (RBC) Count 5.37 mill/uL (4.70-6.10); White Blood Cell (WBC) Count 5.6 10x3/uL (4.8-10.8)
[2022-09-14 23:04] LABS: ALT (SGPT) 31 U/L (8-55); AST (SGOT) 16 U/L (5-34); Albumin 4.5 g/dL (3.5-5.0); Alkaline Phosphatase 70 U/L (40-110); Anion Gap 17 mmol/L (10-20); BUN (Urea Nitrogen) 16 mg/dL (8.9-20.6); Bilirubin, Total 0.7 mg/dL (0.2-1.2); Calc. Creatinine Clearance 0 mL/min (70-130); Calcium 9.1 mg/dL (7.8-10.44); Carbon Dioxide 21 mmol/L (22-29); Chloride 106 mmol/L (98-107); Estimated GFR 79; Globulin 2.9 g/dL (2.4-3.5); Glucose 107 mg/dL (70-105); Potassium 3.8 mmol/L (3.5-5.1); Protein, Total 7.4 g/dL (6.0-8.3); Sodium 140 mmol/L (136-145)
[2022-09-15] MEDS ORDERED: Senokot S 8.6-50 MG TAB PO PRN (02:10)
[2022-09-15] MEDS ORDERED: Ondansetron ODT 4 MG TAB PO PRN (02:10)
[2022-09-15] MEDS ORDERED: Nitroglycerin 0.4 MG TAB (25 Tab Bottle) SL PRN (02:10)
[2022-09-15] MEDS ORDERED: HYDROcodone/Acetaminophen 5/325 mg Tablet PO PRN (02:10)
[2022-09-15] MEDS ORDERED: Bisacodyl 5 MG TAB PO PRN (02:10)
[2022-09-15 02:57] LABS: Troponin I Less than 0.010 ng/mL (< 0.028)
[2022-09-15] MEDS ORDERED: Nitroglycerin 0.4 MG TAB 1 EACH ONE (04:02)
[2022-09-15] MEDS ORDERED: Nitroglycerin 2% Ointment 1 INCH/1 GM Packet ONE (04:02)
[2022-09-15] MEDS ORDERED: Acetaminophen 325 MG TAB ONE (04:07)
[2022-09-15] MEDS: Acetaminophen 325 MG TAB PO PRN ×3 (04:16→20:20)
[2022-09-15 04:51] LABS: Cardiac Risk 7.8 (Less than 4.5); Cholesterol 188 mg/dl (< 200 Desired); HDL Cholesterol 24 mg/dL (>60 Neg Risk); LDL Cholesterol, Calculated 87 mg/dL; Magnesium 2.3 mg/dL (1.6-2.6); Triglycerides 383 mg/dL (Less than 150)
[2022-09-15] MEDS ORDERED: Nitroglycerin 2% Ointment 1 INCH/1 GM Packet TOP SCH (06:00)
[2022-09-15 06:04] LABS: Troponin I Less than 0.010 ng/mL (< 0.028)
[2022-09-15] MEDS ORDERED: Fentanyl 100 MCG/2 ML VIAL SLOW IVP PRN (09:09)
[2022-09-15] MEDS ORDERED: Nitroglycerin 50 MG/250 ML BOT 250 ML IVPB SCH (09:15)
[2022-09-15] MEDS ORDERED: Aspirin Chewable 81 MG TAB ONE ×2 (09:18→09:57)
[2022-09-15] MEDS ORDERED: Nitroglycerin 50 MG/250 ML BOT 250 ML ONE (09:19)
[2022-09-15] MEDS: Aspirin Chewable 81 MG TAB PO SCH (10:12)
[2022-09-15] MEDS: Fenofibrate 48 MG TAB PO SCH (10:13)
[2022-09-15] MEDS: Ezetimibe 10 MG TAB PO SCH (10:13)
[2022-09-15] MEDS: FENTANYL 50 MCG/ML 1 ML VIAL SLOW IVP PRN ×3 (11:00→21:17)
[2022-09-15] MEDS: Ondansetron PF 4 MG/2 ML Vial IVP PRN ×2 (11:00→20:28)
[2022-09-15] MEDS ORDERED: Lorazepam 2 MG/ML VIAL SLOW IVP PRN (12:39)
[2022-09-15] MEDS: Metoprolol Tartrate 25 MG TAB PO SCH ×2 (12:50→20:15)
[2022-09-15 16:18] LABS: Amphetamine Not Detected (NotDetected); Barbiturates Screen Not Detected (NotDetected); Benzodiazepine Screen Detected (NotDetected); Cocaine Metabolite Screen Not Detected (NotDetected); Methadone Not Detected (NotDetected); Methamphetamine Not Detected (NotDetected); Opiate Screen Not Detected (NotDetected); Oxycodone Screen Not Detected (NotDetected); Phencyclidine (PCP) Not Detected (NotDetected); THC/Cannabinoid Screen Not Detected (NotDetected); Tricyclic Screen Not Detected (NotDetected)
[2022-09-15] MEDS: Lorazepam 2 MG/ML VIAL SLOW IVP SCH ×2 (17:07→20:17)
[2022-09-15 17:31] LABS: SARS-CoV-2 NAA Rapid Test Not Detected (NotDetected)
[2022-09-15] MEDS: Icosapent Ethyl 1 GM CAPSULE PO SCH (20:16)
[2022-09-15] MEDS: Famotidine/PF 20 mg/2ml Vial SLOW IVP SCH (20:16)
[2022-09-15] MEDS ORDERED: Atorvastatin Calcium 40 MG TAB PO SCH (21:00)
[2022-09-15] MEDS ORDERED: Fish Oil 1,000 MG CAP PO SCH (21:00)
[2022-09-16] MEDS: Lorazepam 2 MG/ML VIAL SLOW IVP SCH ×5 (01:04→17:01)
[2022-09-16 03:12] LABS: #Basophils 0.1 thou/uL (0.0-0.2); #Eosinphils 0.1 thou/uL (0.0-0.7); #Lymphocytes 1.3 thou/uL (1.20-3.40); #Monocytes 0.9 thou/uL (0.11-0.59); #Neutrophils 6.3 thou/uL (1.40-6.50); %Basophils 0.6 % (0.0-1.0); %Lymphocytes 15.2 % (21.0-51.0); %Monocytes 10.5 % (0.0-10.0); %Neutrophils 72.6 % (42.0-75.0); Hemoglobin 15.1 g/dL (14.0-18.0); Mean Corpuscular HGB CONC 33.7 g/dL (32.0-36.0); Mean Corpuscular Hemoglobin 30.4 pg (27.0-31.0); Mean Corpuscular Volume 90.3 fl (78.0-98.0); Mean Platelet Volume 9.2 fL (7.4-10.4); Platelet Count 185 10x3/uL (130-400); RBC Distribution Width 11.8 % (11.5-14.5); Red Blood Cell (RBC) Count 4.97 mill/uL (4.70-6.10); White Blood Cell (WBC) Count 8.6 10x3/uL (4.8-10.8)
[2022-09-16 03:37] LABS: Anion Gap 13 mmol/L (10-20); BUN (Urea Nitrogen) 17 mg/dL (8.9-20.6); Calc. Creatinine Clearance 152 mL/min (70-130); Calcium 9.2 mg/dL (7.8-10.44); Carbon Dioxide 23 mmol/L (22-29); Chloride 103 mmol/L (98-107); Estimated GFR 86; Glucose 92 mg/dL (70-105); Potassium 3.9 mmol/L (3.5-5.1); Sodium 135 mmol/L (136-145)
[2022-09-16] MEDS: FENTANYL 50 MCG/ML 1 ML VIAL SLOW IVP PRN ×2 (05:43→13:35)
[2022-09-16] MEDS: Aspirin Chewable 81 MG TAB PO SCH (08:48)
[2022-09-16] MEDS: Famotidine/PF 20 mg/2ml Vial SLOW IVP SCH (08:48)
[2022-09-16] MEDS: Metoprolol Tartrate 25 MG TAB PO SCH (08:48)
[2022-09-16] MEDS: Icosapent Ethyl 1 GM CAPSULE PO SCH (08:48)
[2022-09-16] MEDS ORDERED: Fish Oil 1,000 MG CAP PO SCH (09:00)
[2022-09-16] MEDS: Ezetimibe 10 MG TAB PO SCH (09:05)
[2022-09-16] MEDS: Fenofibrate 48 MG TAB PO SCH (09:05)
[2022-09-16] MEDS ORDERED: Ketorolac Tromethamine 30 MG/ML VIAL IVP SCH (09:15)
[2022-09-16 10:01] LABS: Troponin I Less than 0.010 ng/mL (< 0.028)
[2022-09-16 11:09] VITALS: BMI 39.2
[2022-09-16 16:41] VITALS: BP 163/90; TEMP 98.2
== END 2022-09-16 18:15 | disposition home or self-care (01) | DRG 206 ==
LOC: ERS 21:41 → ERHOLD 09-15 00:25 → OBSVTOIN 09-15 09:13 → CCU 09-15 10:24 → 2NO 09-16 16:15
PROVIDERS: ADMIT Internal Medicine; ATTEND Hospitalist
DX: M94.0 Chondrocostal junction syndrome [Tietze] (principal); I50.32 Chronic diastolic (congestive) heart failure; K21.9 Gastro-esophageal reflux disease without esophagitis; I25.10 Atherosclerotic heart disease of native coronary artery without angina pectoris; E78.5 Hyperlipidemia, unspecified; G47.33 Obstructive sleep apnea (adult) (pediatric); E66.01 Morbid (severe) obesity due to excess calories; F41.9 Anxiety disorder, unspecified; Z99.89 Dependence on other enabling machines and devices; Z95.0 Presence of cardiac pacemaker; Z88.5 Allergy status to narcotic agent; Z88.1 Allergy status to other antibiotic agents; Z79.82 Long term (current) use of aspirin; Z79.899 Other long term (current) drug therapy; Z95.5 Presence of coronary angioplasty implant and graft; Z90.49 Acquired absence of other specified parts of digestive tract; Z68.39 Body mass index [BMI] 39.0-39.9, adult
CPT/HCPCS: 36415; 71045; 80048; 80053; 80061; 80306; 83036; 83735; 83880; 84443; 84484; 85025; 87081; 87430; 93005; 93010; 93306; 94760; J1885; J2060; J2405; J3010; S0028